=== PATIENT | male | born 1970 | race Caucasian/White ===

== ENCOUNTER 2019-12-15 16:23 | Emergency (ER) | payer OTHER, SELFPAY ==
--- NOTE | 2019-12-15 16:33 | ED.GENADULT ---
HPI - General Adult General Chief complaint: Skin/Abscess/Foreign Body Stated complaint: shingles Time Seen by Provider: 12/15/19 16:45 Source: patient and RN notes reviewed Mode of arrival: ambulatory Limitations: no limitations History of Present Illness HPI narrative: This patient had onset of some red mildly itchy bumps which began on 12/12/2019 however he had a dull aching sensation which is not been severe that began on 12/11/2019. This pain was in the right mid lumbar area and radiated around the abdominal wall towards the umbilicus. He then developed the rash on the lateral mid abdominal wall on the right side. He has not developed any rashes elsewhere. He has not had a fever. He did have chickenpox x2 once as a younger child and once as an older child when he was in seventh grade when he believes he was 12 years of age. No family members have any rashes. His did have shingles several years ago and looked at this and thought that he might have shingles so he came here today for evaluation. He is otherwise been feeling well without any ear pain, no nasal drainage, no sore throat, no fever, no cough. He has had no nausea, no vomiting, no diarrhea. He has had no hematuria, no dysuria, no pyuria. He has not been traveling. He has no history of immunosuppression. Related Data Allergies Allergy/AdvReac Type Severity Reaction Status Date / Time No Known Allergies Allergy Unverified 12/01/16 08:53 Review of Systems Review of Systems: Narrative: CONSTITUTIONAL: Denies fever, chills, or sweats. Noncontributory except as pertains the past medical history and history of present illness. EYES: Denies visual changes, redness, or discharge. ENT: Denies rhinorrhea, congestion, sore throat, or otalgia. CARDIOVASCULAR: Denies chest pain, palpitations, or edema. RESPIRATORY: Denies cough or dyspnea. GASTROINTESTINAL: Denies abdominal pain, nausea, vomiting, or diarrhea. GENITOURINARY: Denies dysuria or hematuria. SKIN: Denies rash or itching. MUSCULOSKELETAL: Denies back pain, joint pain, or myalgia. NEUROLOGIC: Denies headache, numbness, or weakness. PSYCHIATRIC: Denies anxiety or depression. PMFSH Comments At time of signature, I have reviewed and agree with nursing past medical, surgical, social, and family history.Please see nursing chart for further information. There is no relevant family history pertinent to the presenting complaint. Exam Narrative: Exam Narrative: GENERAL: Well-appearing, well-nourished, and in no acute distress. HEAD: Normocephalic, atraumatic. EYES: PERRLA and EOMI. EARS: TM's clear bilaterally and the canals are clear. NOSE: Nares clear, no rhinorrhea or epistaxis. THROAT:Mucous membranes moist.Oropharynx normal without erythema or exudates. NECK: Supple. No adenopathy of the neck, supraclavicular, axillary, or inguinal areas. RESPIRATORY: No respiratory distress. Airway patent. Respirations non-labored. Clear to auscultation. There are no wheezes, no rales, no retractions, no use accessory muscle respirations. Patient is not cyanotic and not dyspneic. Pulse ox on room air is 100% current temperature is 96 degrees. HEART: Regular rate and rhythm. No murmur heard. Normal peripheral pulses. ABDOMEN: Soft, nontender, nondistended, normal active bowel sounds.No masses. No rebound or guarding, No organomegaly. There is no CVA pain. No pain McBurney's point. He has a negative Campos sign and negative Rovsing sign. He has no pulsatile masses no audible bruits. EXTREMITIES: No clubbing/cyanosis/ edema. Normal strength & range of motion. SKIN: Warm, dry.Normal color. The skin exam is normal except for the right lateral mid abdominal area where the patient has approximately 20 herpetic lesions present with a red base and clear blister. The skin proximal to and distal to this area is hypersensitive to touch. No other lesions are present globally. This is consistent with shingles. There is no evidence of any secon
[2019-12-15 16:35] VITALS: BP 122/64; PULSE 63; RESP 16; TEMP 35.6; O2SAT 100
== END 2019-12-15 16:57 | disposition home or self-care (01) ==
PROVIDERS: Emergency Provider Family Medicine
DX: B02.9 Zoster without complications (principal)
CPT/HCPCS: 99213; G0463

== ENCOUNTER 2021-02-27 14:03 | Emergency (ER) | payer OTHER, SELFPAY ==
[2021-02-27 14:26] VITALS: BP 133/71; PULSE 93; RESP 16; TEMP 36.6; O2SAT 98
--- NOTE | 2021-02-27 14:58 | ED_ITS ---
HPI - URI/Sore Throat General Chief Complaint: Upper Respiratory Infection Stated Complaint: COVID Test Source: patient and RN notes reviewed Limitations: no limitations History of Present Illness HPI Narrative: The patient, a non-smoker/occasional drinker hospital ploidy, presents with sore throat. 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 He complains of a shorter 1 day history of sore throat, a couple days after a weekend wedding. No fever, CP, loss of taste or smell, S OB, sneezing/wheezing, earache, CP, rash. Symptoms are mild Related Data Allergies Allergy/AdvReac Type Severity Reaction Status Date / Time No Known Allergies Allergy Unverified 12/01/16 08:53 Review of Systems Review of Systems: Narrative: General/Constitutional: No weight loss,fever Eyes: N0: Redness,discharge Ears/Nose/Throat: No: Epistaxis,ear discharge Respiratory: Denies: Hemoptysis Gastrointestinal: No Vomiting, Bleeding-rectal Skin: No Lumps, eruption Neurologic: No Focal Weakness,Sz Hematologic: Denies: Petechiae/Purpura Psychiatric: No: Suicida ideationl All Other Systems: Reviewed and Negative PMFSH Comments At time of signature, agree with nursing past medical, surgical, social and family history. There is no relevant family history pertinent to the presenting complaint Exam Narrative: Exam Narrative: General Appearance: Well appearing, Conjunctiva clear Ears: Auditory canal normal Nose: no rhinorrhea, Mucousal erythema Mouth/Throat: MM moist, Uvula midline, Pharyngeal erythema w/o exudate Neck: Supple, No adenopathy Respiratory: No respiratory distress, airway patent Cardiovascular: RRR, No JVD Musculoskeletal: Non tender, Normal strength Skin: Warm, Dry Neurological: A&O x3, Normal affect Course Vital Signs Vital signs: Vital Signs Temperature 97.9 F 02/27/21 14:26 Pulse Rate 93 02/27/21 14:26 Respiratory Rate 16 02/27/21 14:26 Blood Pressure 133/71 02/27/21 14:26 Pulse Oximetry 98 02/27/21 14:26 Temperature 97.9 F 02/27/21 14:26 Pulse Rate 93 02/27/21 14:26 Respiratory Rate 16 02/27/21 14:26 Blood Pressure 133/71 02/27/21 14:26 Pulse Oximetry 98 02/27/21 14:26 MDM - URI/Sore Throat Lab Data Labs: Strep Screen Presumptive Negative *(Reference Range: Negative)* Discharge Plan Discharge Clinical Impression: Pharyngitis Qualifiers: Pharyngitis/tonsillitis etiology: unspecified etiology Qualified Code(s): J02.9 - Acute pharyngitis, unspecified Patient Disposition: Home, Self-Care Condition: Stable Instructions: Antibiotic Form, Pharyngitis (ED) Prescriptions: New Lidocaine Viscous 2 % solution 5 ml MUCOUS MEM QID PRN (Reason: pain) Qty: 100 RF: 0 azithromycin 250 mg tablet See Rx Instructions .ROUTE .COMPLEX Qty: 6 RF: 0 Other Ambulatory Orders: SARS-CoV-2 RNA, Qual RT-PCR (Routine) Location: Determined by Patient Ordered By: Guevara Aly Follow-up/Referrals: White,Nataliia Rose MD [Primary Care Provider] -
== END 2021-02-27 15:05 | disposition home or self-care (01) ==
PROVIDERS: Emergency Provider Emergency Medicine; PCP Internal Medicine
DX: J02.9 Acute pharyngitis, unspecified (principal); Z20.822 Contact with and (suspected) exposure to COVID-19
CPT/HCPCS: 87081; 87426; 87880; 99213; C9803; G0463

== ENCOUNTER → 2021-03-17 12:15 | Outpatient (CLI) | payer OTHER, SELFPAY ==
--- NOTE | ~2021-03-17 | MR_ITS ---
EXAMINATION: MR brain/brain stem wo/w con DATE: 03/17/2021 13:05 INDICATION: Malignant neoplasm of brain. TECHNIQUE: Magnetic resonance imaging (MRI) of the brain and brainstem was performed without and with 14 mL MultiHance intravenous contrast. Sequences included sagittal and axial T1-weighted FSE, axial diffusion-weighted FS EPI, axial T2*-weighted GRE, axial T2-weighted FLAIR Propeller, and axial T2-we ighted Propeller. Postcontrast sequences included axial, sagittal, and coronal T1-weighted FSE. Appar ent diffusion coefficient (ADC) maps were created. COMPARISON: None. FINDINGS: There are changes of suboccipital craniotomy. There are scattered areas of nonspecific incr eased T2-weighted signal intensity in the cerebral white matter, lemuel, and left middle cerebellar ped uncle. There is an old ventriculostomy tract in the right frontal lobe. There is no intracranial hemo rrhage, acute infarction, or abnormal intracranial mass lesion. The ventricles are normal in size. Th e mastoid air cells are normal. There is mild mucosal thickening in the ethmoid sinuses. The orbits a re normal. IMPRESSION: 1. Mild nonspecific cerebral white matter disease and disease of the lemuel and left middle cerebellar peduncle which likely represents chronic small vessel ischemic disease or reactive astrocytosis (glio sis) secondary to nonspecific etiology. 2. 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 Reviewed, dictated and finalized at location A. IMPRESSION: 1. Mild nonspecific cerebral white matter disease and disease of the lemuel and l eft middle cerebellar peduncle which likely represents chronic small vessel isc hemic disease or reactive astrocytosis (gliosis) secondary to nonspecific etiol ogy. 2. 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
[2021-03-17 12:44] LABS: Estimated Glomerular Filt Rate > 60
== END ==
DX: C71.9 Malignant neoplasm of brain, unspecified (principal); R93.0 Abnormal findings on diagnostic imaging of skull and head, not elsewhere classified
CPT/HCPCS: 70553; A9577

== ENCOUNTER 2021-06-02 00:20 | Day surgery (SDC) | payer OTHER, SELFPAY ==
[2021-05-16 15:46] VITALS: BMI 22.3
[2021-06-02 06:44] VITALS: BP 129/74; PULSE 74; RESP 18; TEMP 36.2; O2SAT 99; BMI 21.8
--- NOTE | 2021-06-02 06:48 | WPDANESEPPF ---
Anes - Initial Pre Proc Eval Procedure: Operation Date: 06/02/21 08:30 Proposed Procedures p Screening Colonoscopy - Sherif Remy MD Date/Time: 06/02/21 06:48 Surgeon: Sherif Remy MD Pre Op Diagnosis: neoplasm screening Patient Data Age: 50 Gender: M Height: 1.8 m Weight: 70.9 kg Last Vital Signs Temp 36.2 C L 06/02/21 06:44 Pulse 74 06/02/21 06:44 Resp 18 06/02/21 06:44 BP 129/74 06/02/21 06:44 Pulse Ox 99 06/02/21 06:44 Allergies Allergy/AdvReac Type Severity Reaction Status Date / Time No Known Allergies Allergy Verified 06/02/21 06:42 Home Medications Medication Instructions Recorded Confirmed Type sodium,potassium,mag sulfates 17.5 See Rx Instructions PO .COMPLEX 05/01/21 Rx gram-3.13 gram-1.6 gram oral soln #354 ml cholecalciferol (vitamin D3) 2,000 unit PO DAILY 05/16/21 05/16/21 History [Vitamin D3] cyanocobalamin (vitamin B-12) 2,500 mcg SUBLINGUAL WEEKLY 05/16/21 05/16/21 History [Vitamin B-12] mjajqwzb-kqs-JT-lycopen-lutein 1 tablet PO DAILY 05/16/21 05/16/21 History [Complete MV Adult 50 Plus] Patient hx anesthesia problems: none Family hx anesthesia problems: none PMFSH Past Medical History Medical History Brain tumor (benign) GERD (gastroesophageal reflux disease) Social History Social History Smoking status: Never smoker Alcohol intake: current Drinks per week: 5 Substance use: former Substance use type: marijuana Living arrangements: with family Spiritual care concerns: No Anes - Eval Final PreProcedure Day of Procedure 06/02/21 06:48 Patient weight: normal Heart: regular rate and rhythm Lungs: clear to auscultation Airway: Mallampati scale class II Neurological: alert and oriented Last oral intake: >/= 8 hours ASA classification: III Emergent: no Anesthetic plan: proceed Anesthesia type and monitoring: general GIVS and standard monitoring Informed Consent: The patient's anesthetic plan and its attendant risks and benefits were discussed with the patient/family/POA. Questions were solicited and answers provided to the satisfaction of the patient/family/POA.
[2021-06-02] MEDS: LACTATED RINGERS 1,000 ML 150 ML IV CONT (06:51)
--- NOTE | 2021-06-02 07:57 | WPDGICN ---
Assessment and Plan Assessment and plan (1) Encounter for screening colonoscopy: Code(s): Z12.11 - Encounter for screening for malignant neoplasm of colon Status: Acute Assessment and Plan: Patient presents for screening colonoscopy today. Appears to be at average risk for colon po GI Consult Note Consult date/time: 06/02/21 07:57 HPI: Albert Novak is a 50 year old male Presents for neoplasia screening. Patient states that his weight appetite bowel movements are normal. He denies abdominal pain. He has had no bleeding. Family history is noncontributory. Patient presents today for screening colonoscopy. Review of Systems Review of Systems: All systems reviewed & are unremarkable except as noted in HPI and below PMFSH Past Medical History Medical History Brain tumor (benign) GERD (gastroesophageal reflux disease) Social History Social History Smoking status: Never smoker Alcohol intake: current Drinks per week: 5 Substance use: former Substance use type: marijuana Living arrangements: with family Spiritual care concerns: No Meds Home Medications and Allergies Home Medications Medication Instructions Recorded Confirmed Type sodium,potassium,mag sulfates 17.5 See Rx Instructions PO .COMPLEX 05/01/21 Rx gram-3.13 gram-1.6 gram oral soln #354 ml cholecalciferol (vitamin D3) 2,000 unit PO DAILY 05/16/21 05/16/21 History [Vitamin D3] cyanocobalamin (vitamin B-12) 2,500 mcg SUBLINGUAL WEEKLY 05/16/21 05/16/21 History [Vitamin B-12] pcunywzc-cic-VT-lycopen-lutein 1 tablet PO DAILY 05/16/21 05/16/21 History [Complete MV Adult 50 Plus] Allergies Allergy/AdvReac Type Severity Reaction Status Date / Time No Known Allergies Allergy Verified 06/02/21 06:42 Vital Signs Vital Signs - 24 hr 06/02/21 06:44 Temperature 97.1 F L Pulse Rate 74 Respiratory Rate 18 Blood Pressure 129/74 Pulse Oximetry 99 Exam Narrative: Exam Narrative: Physical exam reveals patient be alert. Vital signs are stable. HEENT exam unremarkable. Patient is anicteric. Lungs are clear to auscultation and percussion. Heart is without murmur or extra sounds. Abdominal exam bowel sounds are present soft nontender with no organomegaly. Digital external rectal exam is normal.
[2021-06-02 08:49] VITALS: BP 104/57; PULSE 74; RESP 18; O2SAT 99
[2021-06-02 08:59] VITALS: BP 112/70; PULSE 73; RESP 22; O2SAT 100
[2021-06-02 09:09] VITALS: BP 118/79; PULSE 60; RESP 13; O2SAT 100
== END 2021-06-02 09:18 | disposition home or self-care (01) ==
PROVIDERS: PCP Internal Medicine; Visit Provider Internal Medicine Gastroenterology
PROC: 0DJD8ZZ Inspection of Lower Intestinal Tract, Via Natural or Artificial Opening Endoscopic (ICD-10-PCS; CPT 45378; principal; 2021-06-02 08:30)
DX: Z12.11 Encounter for screening for malignant neoplasm of colon (principal); K21.9 Gastro-esophageal reflux disease without esophagitis
CPT/HCPCS: 45378; J2704; J7120

== ENCOUNTER 2023-08-13 02:56 | Day surgery (SDC) | payer OTHER, SELFPAY ==
[2023-08-01 08:52] VITALS: BMI 25.3
[2023-08-13 10:46] VITALS: BP 127/82; PULSE 62; RESP 20; TEMP 36.2; O2SAT 100; BMI 21.9
[2023-08-13] MEDS: LACTATED RINGERS 1,000 ML 150 ML IV CONT (10:57)
--- NOTE | 2023-08-13 11:28 | P.HP_ITS ---
History of Present Illness History of Present Illness Consent: Risks, benefits, and alternatives have been discussed and questions answered. Patient agrees to proceed with procedure. Chief complaint: dysphagia Narrative: Albert Novak is a 53 year old male Presents for EGD. Patient reports 0 the last year has intermittently had difficulty with food catching in the low portion of the chest. When this happens he is unable to eat or swallow any additional intake. Patient denies any specific pain. However when the food is caught this will cause him discomfort. Patient denies any heartburn. He has no weight loss. No bleeding. Past medical history is significant for a distant history of a brain tumor many years ago. Family history is noncontributory. Review of Systems Review of Systems: Review of systems noncontributory. [facility] Past Medical History Medical History Brain tumor (benign) GERD (gastroesophageal reflux disease) Social History Social History Smoking status: Never smoker Alcohol intake: current Drinks per week: 4 Substance use: former Substance use type: does not use Living arrangements: with family Spiritual care concerns: No Meds Home Medications and Allergies Home Medications Medication Instructions Recorded Confirmed Type cholecalciferol (vitamin D3) 50 2,000 unit PO DAILY 05/16/21 08/01/23 History mcg (2,000 unit) capsule (Vitamin D3) cyanocobalamin (vitamin B-12) 2,500 mcg sublingual WEEKLY 05/16/21 08/01/23 History 2,500 mcg sublingual tablet (Vitamin B-12) gjttztzi-zmf-zircp acid 0.4 1 tablet PO DAILY 05/16/21 08/01/23 History mg-lycopene 300 mcg-lutein 250 mcg tablet (Complete Multivitamin Adult 50 Plus) Allergies Allergy/AdvReac Type Severity Reaction Status Date / Time No Known Allergies Allergy Verified 08/13/23 10:45 Vital Signs Vital Signs - 24 hr 08/13/23 10:46 Temperature 97.1 F L Pulse Rate 62 Respiratory Rate 20 Blood Pressure 127/82 Pulse Oximetry 100 Oxygen Delivery Room Air Exam Narrative: Physical exam reveals patient to be alert. Vital signs stable. HEENT exam is unremarkable. Patient is anicteric. Lungs are clear to auscultation and percussion. Heart is without murmur or extra sounds. Abdomen bowel sounds are present soft nontender with no organomegaly. Assessment and Plan Assessment and plan (1) Dysphagia: Code(s): R13.10 - Dysphagia, unspecified Status: Acute Assessment and Plan: Patient with dysphagia to solid food suspicious for esophageal narrowing. Plan for EGD to assess possibly for dilatation. Further recommendations may be given after endoscopy.
[2023-08-13 12:39] VITALS: BP 109/71; PULSE 58; RESP 16; O2SAT 100
[2023-08-13 12:49] VITALS: BP 109/71; PULSE 68; RESP 18; O2SAT 100
[2023-08-13 12:59] VITALS: BP 110/68; PULSE 66; RESP 20; O2SAT 100
== END 2023-08-13 13:00 | disposition home or self-care (01) ==
PROVIDERS: PCP Internal Medicine; Visit Provider Internal Medicine Gastroenterology
PROC: 0DJ08ZZ Inspection of Upper Intestinal Tract, Via Natural or Artificial Opening Endoscopic (ICD-10-PCS; CPT 43235; principal; 2023-08-13 11:30)
DX: K22.2 Esophageal obstruction (principal); K21.9 Gastro-esophageal reflux disease without esophagitis
CPT/HCPCS: 43450; 43235; J2704; J7120